=== PATIENT | female | born 1975 | race Caucasian/White ===

== ENCOUNTER 2018-01-18 10:18 | Day surgery (SDC) | payer BC ==
[~2018-01-18] VITALS: Ht 160 cm; Wt 90.7 kg
[~2018-01-18 10:18] MED LIST: CEFAZOLIN SOD 1 GM/ ISO 50 ML PREMIX IV ONE
[2018-01-18] MEDS ORDERED: FAMOTIDINE 20 MG TABLET PO ONE (11:00)
[2018-01-18] MEDS ORDERED: METOCLOPRAMIDE HCL 10 MG TABLET PO ONE (11:00)
[2018-01-18] MEDS ORDERED: LR 1,000 ML IV SCH (13:27)
[2018-01-18] MEDS ORDERED: HYDROmorphone 2 MG/ML VIAL IVP PRN ×2 (13:30)
[2018-01-18] MEDS ORDERED: MEPERIDINE HCL/PF 25 MG/ML DISP.SYRIN IVP PRN (13:30)
[2018-01-18] MEDS ORDERED: HYDROmorphone 1 MG INJ. 1 MG/ML AMPUL IVP PRN (13:30)
[2018-01-18] MEDS ORDERED: OXYCODONE/ACETAMINOPHEN 5-325 TABLET PO PRN ×2 (14:15)
[2018-01-18] MEDS ORDERED: ONDANSETRON HCL 4 MG/2 ML VIAL IVP PRN (14:15)
[2018-01-18] MEDS ORDERED: HYDROcodone/ACETAMIN 5-325 MG TAB (NORCO/ VICODIN) PO PRN (14:15)
[2018-01-18] MEDS ORDERED: HYDROmorphone 2 MG/ML VIAL ONE (15:48)
[2018-01-18] MEDS ORDERED: KETOROLAC TROMETHAMINE 30 MG VIAL ONE (16:20)
[2018-01-18] MEDS ORDERED: KETOROLAC TROMETHAMINE 30 MG VIAL IVP ONE (16:30)
[2018-01-18 16:43] VITALS: BP_SYST 125
[2018-01-18] MEDS ORDERED: SIMETHICONE 80 MG TAB.CHEW PO SCH (17:00)
== END 2018-01-18 18:00 | disposition home or self-care (01) ==
LOC: SDS 10:18 → SMU 10:19 → SDS 18:00
PROVIDERS: ATTEND Specialist
DX: D25.2 Subserosal leiomyoma of uterus (principal); D25.1 Intramural leiomyoma of uterus; D25.0 Submucous leiomyoma of uterus; Z68.37 Body mass index [BMI] 37.0-37.9, adult; Z79.899 Other long term (current) drug therapy; Z98.890 Other specified postprocedural states; E11.9 Type 2 diabetes mellitus without complications; I10 Essential (primary) hypertension; E66.9 Obesity, unspecified; F32.9 Major depressive disorder, single episode, unspecified; E78.5 Hyperlipidemia, unspecified
CPT/HCPCS: 58552; 82962; 88307; C1727; J0690; J1170; J1885; J8597; E0190